=== PATIENT | female | born 1990 | race American Indian/Alaskan Native ===

== ENCOUNTER 2018-02-11 21:00 | Emergency (ER) | payer BC ==
[2018-02-11 21:15] VITALS: BP 118/64
[2018-02-11] MEDS ORDERED: BENADRYL IM ONE (22:52)
[2018-02-11] MEDS ORDERED: PEPCID PO ONE (22:52)
--- NOTE | 2018-02-11 22:56 | Emergency Department Report ---
Chief Complaint: Allergic Reaction Stated Complaint: ALLERGIC REACTION - HPI History of Present Illness: 27-year-old female comes to the emergency room reporting allergic reaction that started about 4 PM. Patient is unsure what she is ingested or been exposed to but now she having sweeling of her upper lip, throat soreness, denies any shortness of breathing denies any wheezing denies any chest pain denies her throat swelling denies any drooling. Patient has no known drug allergies. - Exam Vital Signs: Vital Signs 02/11/18 02/11/18 21:00 21:08 Temperature 98.5 F 98.5 F Pulse Rate 70 65 Respiratory 18 18 Rate Blood Pressure 118/64 118/64 O2 Sat by Pulse 97 98 Oximetry Physical Exam: Patient alert and oriented 3. Patient's no acute distress sitting comfortably in the fast track waiting room texting on her cell phone. There is notice of swelling of the upper lip. MSE screening note: Focused history and physical exam performed. Due to findings the following was ordered: Patient is been screened by this provider. Place orders for Benadryl 50 mg IM her Medrol 125 mg IM and Pepcid 20 mg by mouth. Patient be evaluated in fast track ED Disposition for MSE Condition: Stable
--- NOTE | 2018-02-12 01:01 | Emergency Department Report ---
HPI - General Chief Complaint: Allergic Reaction Time Seen by Provider: 02/12/18 00:55 - HPI HPI: Patient is a 27-year-old female with no prior medical history who presents to ED complaining of allergic reaction started today. Patient states that she ate some red bring sunrise around 12 PM today shortly after she noticed her lips began swelling around 3 PM. Patient denies throat swelling or itching pain or shortness of breath. Patient says she has no known drug allergies or any other allergies known to her. ED Past Medical Hx - Past Medical History Hx Arthritis: Yes (RIGHT KNEE) - Surgical History Past Surgical History?: Yes Additional Surgical History: RIGHT KNEE SURGERY 2012 - Social History Smoking Status: Heavy Tobacco Smoker Substance Use Type: Alcohol - Medications Home Medications: Home Medications Medication Instructions Recorded Confirmed Last Taken Type Famotidine [Pepcid] 20 mg PO DAILY #10 tablet 02/12/18 Unknown Rx diphenhydrAMINE [Benadryl CAP] 25 mg PO QHS PRN #20 capsule 02/12/18 Unknown Rx predniSONE [Deltasone] 5 mg PO QDAY #5 tab 02/12/18 Unknown Rx ED Review of Systems ROS: Stated complaint: ALLERGIC REACTION Other details as noted in HPI Constitutional: denies: chills, fever Eyes: denies: eye pain, eye discharge, vision change ENT: denies: ear pain, throat pain Respiratory: denies: cough, shortness of breath, wheezing Cardiovascular: denies: chest pain, palpitations Endocrine: no symptoms reported Gastrointestinal: denies: abdominal pain, nausea, diarrhea Genitourinary: denies: urgency, dysuria, discharge Musculoskeletal: denies: back pain, joint swelling, arthralgia Skin: denies: rash, lesions Neurological: denies: headache, weakness, paresthesias Psychiatric: denies: anxiety, depression Hematological/Lymphatic: denies: easy bleeding, easy bruising Physical Exam - Physical Exam Vital Signs: Vital Signs 02/11/18 02/11/18 21:00 21:08 Temperature 98.5 F 98.5 F Pulse Rate 70 65 Respiratory 18 18 Rate Blood Pressure 118/64 118/64 O2 Sat by Pulse 97 98 Oximetry Physical Exam: GENERAL: Alert and oriented x3, no apparent distress, Normal Gait, atraumatic. HEAD: Head is normocephalic and a-traumatic. MOUTH:Mouth is well hydrated and without lesions. Tonsils nonerythematous or swollen, Uvula midline, Tongue not elevated. Mucous membranes are moist. Posterior pharynx clear, no exudate or lesions. Patent airways. Upper lips swollen and nontender to palpation NECK: Supple. Non edematous, No carotid bruits. No lymphadenopathy or thyromegaly. No C-spine tenderness LUNGS: Symetrical with respiration, No wheezing, no rales or crackles, CTAB. HEART: S1, S2 present, regular rate and rhythm without murmur, no rubs, no gallops. Non tender to palpation SKIN: Warm and dry, No lesions, No ulceration or induration present. ED Course Vital Signs 02/11/18 02/11/18 21:00 21:08 Temperature 98.5 F 98.5 F Pulse Rate 70 65 Respiratory 18 18 Rate Blood Pressure 118/64 118/64 O2 Sat by Pulse 97 98 Oximetry ED Medical Decision Making - Medical Decision Making This is a 27-year-old female presents with allergic reaction ED course: Patient received pred,benadryl and Pepcid in the ED. Discussed with patient to follow up with primary care physician. Discussed the patient to return to ED if any worsening symptoms Vital signs are normal patient is in no acute or respiratory distress She is speaking in normal full sentences. Patient reports feeling better after medication and states she is ready to go home. Critical care attestation.: If time is entered above; I have spent that time in minutes in the direct care of this critically ill patient, excluding procedure time. ED Disposition Clinical Impression: Allergic reaction Qualifiers: Encounter type: initial encounter Qualified Code(s): T78.40XA - Allergy, unspecified, initial encounter Disposition: - TO HOME OR SELFCARE Is pt being admited?: No Does the pt Need Aspirin: No Condition: Stable Instructions: Food Allergy (ED), Anaphylaxis (ED) Additional Instructions: Make sure to follow up with the primary care physician as discussed. Take all your medications as you've been prescribed. If you have any worsening symptoms or develop new symptoms please return to ED immediately. Prescriptions: diphenhydrAMINE [Benadryl CAP] 25 mg PO QHS PRN #20 capsule PRN Reason: Allergic Reaction Famotidine [Pepcid] 20 mg PO DAILY #10 tablet predniSONE [Deltasone] 5 mg PO QDAY #5 tab Referrals: ELVIRA TITUS MD [Primary Care Provider] - 3-5 Days Forms: Accompanied Note, Work/School Release Form(ED) Time of Disposition: 01:04
== END 2018-02-12 01:10 | disposition home or self-care (01) ==
LOC: ED 21:00
DX: T78.1XXA Other adverse food reactions, not elsewhere classified, initial encounter (principal); X58.XXXA Exposure to other specified factors, initial encounter; Z72.0 Tobacco use
CPT/HCPCS: 96372; 99282; J1200; J2930